=== PATIENT | female | born 1985 | race African-American/Black ===

== ENCOUNTER 2019-12-06 08:56 | Emergency (ER) | payer MEDICAID ==
[~2019-12-06] VITALS: Ht 165.1 cm; Wt 52.0 kg
[~2019-12-06 08:56] MED LIST: ARIP2TAB3; CIPR500S3; METR500T; QUET25TA
[2019-12-06] MEDS ORDERED: MAGNESIUM/ALUMINUM HYDROXIDE/SIMETHICONE 30ML UDC PO STA (09:02)
[2019-12-06] MEDS ORDERED: KETOROLAC 30MG/ML VIAL IV STA (09:02)
[2019-12-06] MEDS ORDERED: SODIUM CHLORIDE 0.9% 1,000 ML IV ONE (09:02)
[2019-12-06] MEDS ORDERED: ONDANSETRON HCL 4MG/2ML INJ IV STA (09:02)
[2019-12-06 09:37] LABS: BASOPHILS % 0.7 % (0.0-2.0); EOSINOPHILS % 0.1 % (0.0-5.0); HEMATOCRIT. 40.5 % (36.0-48.0); HEMOGLOBIN. 13.8 g/dL (12.0-16.0); LYMPHOCYTES % 25.1 % (20.0-50.0); MEAN CORPUSCULAR VOLUME 96.8 fL (81.0-99.0); MEAN PLATELET VOLUME 8.6 fl (7.4-10.4); MONOCYTES % 5.3 % (2.0-8.0); NEUTROPHILS % 68.8 % (40.0-76.0); PLATELET 172 x1000/uL (130-400); RED BLOOD CELL COUNT 4.19 mill/uL (4.2-5.4); RED CELL DISTRIBUTION WIDTH 13.9 % (11.6-14.6)
[2019-12-06 09:43] LABS: CHLORIDE 110 mEq/L (98-107)
[2019-12-06 09:47] LABS: ETHANOL BLOOD < 10 mg/dL
[2019-12-06 09:50] LABS: INR 1.1; PROTHROMBIN TIME 11.9 sec (9.6-11.0)
[2019-12-06 10:08] LABS: CLARITY URINE CLOUDY (CLEAR); COLOR URINE YELLOW (YELLOW); KETONES URINE TRACE (NEGATIVE); LEUKOCYTE ESTERASE URINE 2+ (NEGATIVE); NITRITE URINE NEGATIVE (NEGATIVE); OCCULT BLOOD URINE 3+ (NEGATIVE); PH URINE 5.5 (4.5-8.0); PROTEIN URINE 1+ (NEGATIVE); SPECIFIC GRAVITY URINE 1.026 (1.005-1.030)
[2019-12-06 10:17] LABS: *AMPHETAMINES SCREEN URINE NEGATIVE (NEGATIVE); *BARBITURATES SCREEN URINE NEGATIVE (NEGATIVE)
[2019-12-06 10:18] LABS: *BENZODIAZEPINES SCREEN URINE NEGATIVE (NEGATIVE); *COCAINE SCREEN URINE NEGATIVE (NEGATIVE); METHADONE URINE SCREEN NEGATIVE (NEGATIVE); OPIATES URINE SCREEN NEGATIVE (NEGATIVE); PHENCYCLIDINE URINE SCREEN NEGATIVE (NEGATIVE)
[2019-12-06 10:22] LABS: CANNABINOID URINE SCREEN PRESUMTIVE POSITIVE (NEGATIVE)
[2019-12-06] MEDS ORDERED: CEFTRIAXONE 1 G PREMIX 50 ML IV ONE (10:30)
[2019-12-06] MEDS ORDERED: LORAZEPAM 2MG/ML CPJ IV ONE (10:30)
[2019-12-06 13:48] VITALS: BP 122/76
== END 2019-12-06 13:48 | disposition home or self-care (01) ==
LOC: ER 09:11
DX: N30.00 Acute cystitis without hematuria (principal); R03.0 Elevated blood-pressure reading, without diagnosis of hypertension; J45.909 Unspecified asthma, uncomplicated
CPT/HCPCS: 36415; 74176; 80053; 80305; 80320; 81003; 81025; 83690; 85025; 85610; 87086; 96374; 96375; 99284; J0696; J1885; J2060; J2405; J7030; G0480

== ENCOUNTER 2020-07-17 13:07 | Emergency (ER) | payer MEDICAID ==
[~2020-07-17] VITALS: Ht 160 cm; Wt 41.0 kg
[2020-07-17] MEDS ORDERED: ONDANSETRON HCL 4MG/2ML INJ IV STA (13:32)
[2020-07-17] MEDS ORDERED: MORPHINE SULFATE 4 MG/ML CPJ (NOT FOR IM USE) IV STA (13:32)
[2020-07-17 13:42] LABS: BASOPHILS % 0.8 % (0.0-2.0); EOSINOPHILS % 0.2 % (0.0-5.0); HEMATOCRIT. 46.8 % (36.0-48.0); HEMOGLOBIN. 16.2 g/dL (12.0-16.0); LYMPHOCYTES % 13.5 % (20.0-50.0); MEAN CORPUSCULAR HEMOGLOBIN 33.1 pg (28.0-32.0); MEAN CORPUSCULAR VOLUME 95.6 fL (81.0-99.0); MEAN PLATELET VOLUME 8.6 fl (7.4-10.4); MONOCYTES % 6.1 % (2.0-8.0); NEUTROPHILS % 79.4 % (40.0-76.0); PLATELET 168 x1000/uL (130-400); RED BLOOD CELL COUNT 4.89 mill/uL (4.2-5.4); RED CELL DISTRIBUTION WIDTH 13.4 % (11.6-14.6)
[2020-07-17 13:49] LABS: CHLORIDE 102 mEq/L (98-107)
[2020-07-17 13:50] LABS: HCG SCREEN NEGATIVE
[2020-07-17 13:51] LABS: INR 1.2; PROTHROMBIN TIME 12.4 sec (9.6-11.0)
[2020-07-17 15:45] VITALS: BP 144/88
[2020-07-17] MEDS ORDERED: ONDA4TAB5 MT ×2 (15:58→16:02)
[2020-07-17] MEDS ORDERED: T3 PO ×2 (15:58→16:02)
== END 2020-07-17 17:16 | disposition home or self-care (01) ==
LOC: ER 13:07
DX: R10.13 Epigastric pain (principal); R03.0 Elevated blood-pressure reading, without diagnosis of hypertension; E87.6 Hypokalemia; J45.909 Unspecified asthma, uncomplicated
CPT/HCPCS: 36415; 74176; 80053; 83690; 84703; 85025; 85610; 96374; 96375; 99284; J2270; J2405; Z7610